=== PATIENT | female | born 1935 | race Caucasian/White ===

== ENCOUNTER 2017-11-10 16:08 | Emergency (ER) | payer MEDICARE, OTHER ==
--- NOTE | 2017-11-10 18:12 | RAD ---
HISTORY: Pain with bruising to second third and fourth toes COMPARISONS: None VIEWS: 3, Frontal, lateral, and oblique views of the left foot FINDINGS: BONE DENSITY: There is diffuse osteopenia. BONES: There is no displaced fracture. There are plantar calcaneal enthesophytes. JOINTS: There is mild osteoarthritis of the interphalangeal joints. There is mild osteoarthritis of the midfoot. ALIGNMENT: There is no dislocation. SOFT TISSUES: Unremarkable. OTHER FINDINGS: None. IMPRESSION: 1. OSTEOPENIA. 2. OSTEOARTHRITIS. 3. NO ACUTE OSSEOUS INJURY. THE DEGREE OF OSTEOPENIA MAY MAKE A NONDISPLACED FRACTURE RADIOGRAPHICALLY OCCULT. IF SYMPTOMS PERSIST, RECOMMEND REPEAT IMAGING.
--- NOTE | 2017-11-10 19:09 | RAD ---
INDICATIONS: No discoloration COMPARISONS: None TECHNIQUE: Ankle-brachial indices and Doppler tracings were obtained of the lower extremities bilaterally. FINDINGS: Right: The posterior tibial ankle brachial index is 1.02. The dorsalis pedis ankle brachial index is 0.94. The digital brachial index is 0.69 The posterior tibial waveform is triphasic. The dorsalis pedis waveform is triphasic. Left: The posterior tibial ankle brachial index is 1.09. The dorsalis pedis ankle brachial index is 1.03. The digital brachial index is 0.6 The posterior tibial waveform is triphasic. The dorsalis pedis waveform is triphasic. OTHER: None. IMPRESSION: 1. THE LEFT ANKLE-BRACHIAL INDICES ARE SLIGHTLY ELEVATED SUGGESTIVE OF DECREASED COMPLIANCE IN THE SETTING OF ARTERIOSCLEROSIS WHICH MAY ARTIFACTUALLY ELEVATE THE ANKLE-BRACHIAL INDICES AND DIGITAL BRACHIAL INDICES BILATERALLY. 2. 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 THE DISTAL WAVEFORMS ARE NORMAL.
--- NOTE | 2017-11-10 19:52 | ED ---
Lower Extremity - HPI Summary HPI Summary: Complains of progressive area of purple colored tissue at base of second and third toe of left foot starting Tuesday. Pain only with weightbearing, no pain when sitting. Sent by PCP for evaluation of blood clot or occlusion. Denies trauma, fever, cough, sore throat, CP, SOB, N/V/D, abdomen pain, change in urinary BM. History of any CVA 6 years ago. On Plavix - History of Current Complaint Chief Complaint: EDExtremityLower Stated Complaint: LT FT PAIN Time Seen by Provider: 11/10/17 17:32 Hx Obtained From: Patient Pain Intensity: 4 - Allergies/Home Medications Allergies/Adverse Reactions: Allergies Allergy/AdvReac Type Severity Reaction Status Date / Time ciprofloxacin Allergy See Comment Verified 11/10/17 17:04 erythromycin base Allergy Anaphylatic Verified 11/10/17 17:04 Shock fluorescein Allergy See Comment Verified 11/10/17 17:04 [From Fluoracaine] naproxen Allergy Nausea And Verified 11/10/17 17:04 Vomiting proparacaine Allergy See Comment Verified 11/10/17 17:04 [From Fluoracaine] latex Allergy Intermediate rash,bliste Uncoded 11/10/17 17:04 rs enviromental Allergy Mild Runny Nose Uncoded 11/10/17 17:04 PMH/Surg Hx/FS Hx/Imm Hx Endocrine/Hematology History: Denies: Hx Diabetes Cardiovascular History: Reports: Hx Hypercholesterolemia, Hx Hypertension, Other Cardiovascular Problems/Disorders - aortic regurgitation Denies: Hx Pacemaker/ICD Respiratory History: Reports: Hx Asthma History: Denies: Hx Dialysis, Hx Renal Disease Musculoskeletal History: Reports: Other Musculoskeletal History - knees, Sensory History: Denies: Hx Hearing Aid Psychiatric History: Denies: Hx Panic Disorder - Surgical History Surgery Procedure, Year, and Place: tonsillectomy, appendectomy, cataract BILATERAL EYES, knee bilat REPLACEMENT,uterine polyp - Immunization History Immunizations Up to Date: Yes Infectious Disease History: No Infectious Disease History: Denies: Traveled Outside the [place] in Last 30 Days - Social History Alcohol Use: Occasionally Substance Use Type: Reports: Prescribed Smoking Status (MU): Former Smoker Review of Systems Constitutional: Negative Eyes: Negative ENT: Negative Cardiovascular: Negative Respiratory: Negative Gastrointestinal: Negative Genitourinary: Negative Musculoskeletal: Negative Skin: Negative Neurological: Negative Psychological: Normal All Other Systems Reviewed And Are Negative: Yes Physical Exam - Summary Physical Exam Summary: Area purple coloring at base of second and third toes of left foot extending proximally. Tender to palpation. Bounding pulses of both posterior tibialis, and dorsalis pedis on left foot. Left toes slightly cooler than right toes. No tenderness to left calf or left ankle. PMS intact. Triage Information Reviewed: Yes Vital Signs On Initial Exam: Initial Vitals Temp Pulse Resp BP Pulse Ox 97.1 F 71 15 193/86 94 11/10/17 16:19 11/10/17 16:19 11/10/17 16:19 11/10/17 16:19 11/10/17 16:19 Vital Signs Reviewed: Yes Appearance: Positive: Well-Appearing Skin: Positive: Warm Head/Face: Positive: Normal Head/Face Inspection Eyes: Positive: Normal Neck: Positive: Supple Respiratory/Lung Sounds: Positive: Clear to Auscultation Cardiovascular: Positive: Normal Abdomen Description: Positive: Nontender Musculoskeletal: Positive: Normal Neurological: Positive: Normal Psychiatric: Positive: Normal AVPU Assessment: Alert - Jose Juan Coma Scale Best Eye Response: 4 - Spontaneous Best Motor Response: 6 - Obeys Commands Best Verbal Response: 5 - Oriented Coma Scale Total: 15 Diagnostics - Vital Signs Vital Signs Temp Pulse Resp BP Pulse Ox 11/10/17 16:19 97.1 F 71 15 193/86 94 - Laboratory Lab Statement: Any lab studies that have been ordered have been reviewed, and results considered in the medical decision making process. - Radiology foot Xray Interpretation: No Acute Changes Radiology Interpretation Completed By: Radiologist - Ultrasound No standard instances Ultrasound Interpretation: No Acute Changes - MARLIN unremarkable Ultrasound Interpretation Completed By: Radiologist Lower Extremity Course/Dx - Course Course Of Treatment: Complains of progressive area of purple colored tissue at base of second and third toe of left foot starting Tuesday. Denied trauma, pain only with weightbearing. Sent by PCP for evaluation of blood clot or occlusion. On Plavix. Physical exam revealed bounding pulses of both posterior tibialis, and dorsalis pedis on left foot. Left toes slightly cooler than right toes. No tenderness to left calf or left ankle. PMS intact. Imaging negative for occlusion or acute process. Recommend open comfortable shoes. - Diagnoses Provider Diagnoses: Ecchymosis Discharge - Sign-Out/Discharge Documenting (check all that apply): Discharge/Admit/Transfer - Discharge Plan Condition: Stable Disposition: HOME Patient Education Materials: Ecchymosis (ED) Referrals: Tolu Valera MD [Primary Care Provider] - Additional Instructions: Wear open comfortable shoes to minimize further trauma. Ecchymosis will absorb over the next 7-12 days. Return to the ED for any new or worsening symptoms. - Billing Disposition and Condition Condition: STABLE Disposition: HOME
[2017-11-10 20:12] VITALS: BP 143/74
== END 2017-11-10 20:11 | disposition home or self-care (01) ==
LOC: ED 16:08
DX: R58 Hemorrhage, not elsewhere classified (principal); R94.39 Abnormal result of other cardiovascular function study; M79.672 Pain in left foot; M85.872 Other specified disorders of bone density and structure, left ankle and foot; M19.072 Primary osteoarthritis, left ankle and foot; Z87.891 Personal history of nicotine dependence; Z86.73 Personal history of transient ischemic attack (TIA), and cerebral infarction without residual deficits; Z79.02 Long term (current) use of antithrombotics/antiplatelets; Z88.3 Allergy status to other anti-infective agents; Z88.4 Allergy status to anesthetic agent
CPT/HCPCS: 93922; 99282